=== PATIENT | male | born 1985 | race Caucasian/White ===

== ENCOUNTER 2021-07-30 09:40 | Outpatient (CLI) | payer BC ==
[2021-07-30] MEDS ORDERED: SODIUM CHLORIDE 0.9% 2,000 ML IV ONE (10:42)
[2021-07-30] MEDS ORDERED: ONDANSETRON 4 MG/2 ML VIAL IVP STA (10:42)
[2021-07-30] MEDS ORDERED: KETOROLAC 15 MG/ML 1 ML VIAL IVP STA (10:42)
--- NOTE | 2021-07-30 10:48 | ED ---
Fever HPI - General Chief Complaint: Fever Stated Complaint: vomiting, diarrhea, fever Time Seen by Provider: 07/30/21 10:21 Source: patient, RN notes reviewed Mode of arrival: ambulatory Limitations: no limitations - History of Present Illness Initial Comments: 36-year-old male presents emergency from chief complaint of fever cough congestion. Patient states that his and daughter positive for COVID-19. Patient states symptoms started last few days he's had some nausea, vomiting, diarrhea, cough, fever bodyaches. No significant past smoking history no other complaints. Denies chest pain shortness breath. - Related Data Previous Rx's Medication Instructions Recorded Ondansetron Odt [Zofran ODT] 4 mg PO Q8HR PRN #10 tab 12/28/15 Allergies Allergy/AdvReac Type Severity Reaction Status Date / Time No Known Allergies Allergy Verified 07/30/21 09:56 Review of Systems ROS Statement: Those systems with pertinent positive or pertinent negative responses have been documented in the HPI. ROS Other: All systems not noted in ROS Statement are negative. Past Medical History Past Medical History: No Reported History History of Any Multi-Drug Resistant Organisms: None Reported Past Surgical History: No Surgical Hx Reported Past Psychological History: No Psychological Hx Reported Past Alcohol Use History: None Reported Past Drug Use History: None Reported General Exam Limitations: no limitations General appearance: alert, in no apparent distress Head exam: Present: atraumatic, normocephalic, normal inspection Eye exam: Present: normal appearance, PERRL, EOMI. Absent: scleral icterus, conjunctival injection, periorbital swelling ENT exam: Present: normal exam, normal oropharynx, mucous membranes moist Neck exam: Present: normal inspection, full ROM. Absent: tenderness, meningismus, lymphadenopathy Respiratory exam: Present: normal lung sounds bilaterally. Absent: respiratory distress, wheezes, rales, rhonchi, stridor Cardiovascular Exam: Present: regular rate, normal rhythm, normal heart sounds. Absent: systolic murmur, diastolic murmur, rubs, gallop, clicks GI/Abdominal exam: Present: soft, normal bowel sounds. Absent: distended, tenderness, guarding, rebound, rigid Course Vital Signs 07/30/21 09:52 Temperature 98.9 F Pulse Rate 83 Respiratory 18 Rate Blood Pressure 112/73 O2 Sat by Pulse 97 Oximetry Medical Decision Making - Medical Decision Making Patient was hydrated, given antiemetics, was given monoclonal antibody inf usional be discharged stable condition. - Lab Data Lab Results 07/30/21 Range/Units 09:59 Coronavirus (PCR) Detected A (Not Detectd) Disposition Clinical Impression: COVID-19 Disposition: HOME SELF-CARE Condition: Stable Instructions (If sedation given, give patient instructions): Coronavirus Disease 2019 (COVID-19) Additional Instructions: Please return to the Emergency Department if symptoms worsen or any other concerns. Is patient prescribed a controlled substance at d/c from ED?: No Referrals: Douglas Gardner DO [Primary Care Provider] - 1-2 days Time of Disposition: 10:48
[2021-07-30] MEDS ORDERED: CASIRIVIMAB/IMDEVIMAB (EUA) 1,200 MG in SODIUM CHLORIDE 0.9% 100 ML IVPB ONE (11:30)
[2021-07-30] MEDS ORDERED: SODIUM CHLORIDE 0.9% 50 ML IVPB ONE (12:00)
[2021-07-30 12:17] VITALS: RESP 16
[2021-07-30 12:41] VITALS: BP 107/73; PULSE 64; TEMP 97.3
== END 2021-07-30 13:55 | disposition home or self-care (01) ==
LOC: PROCWHC3 09:40 → EDSTATUS 12:08 → EC 13:50 → PROCWHC3 13:55
PROVIDERS: ATTEND Physician Assistant
DX: R11.10 Vomiting, unspecified (principal); R19.7 Diarrhea, unspecified; R50.9 Fever, unspecified; Z20.822 Contact with and (suspected) exposure to COVID-19
CPT/HCPCS: 87635; J2405; J1885; Q0243; M0243